=== PATIENT | male | born 1985 | race Hispanic/Latino ===

== ENCOUNTER 2016-06-10 23:06 | Emergency (ER) | payer OTHER ==
[2016-06-10 23:41] LABS: Hemoglobin 15.8 gm/dl (11.8-15.2); Mean Corpuscular HGB Conc 34 % (32-34); Mean Corpuscular Hemoglobin 30 pg (28-32); Mean Corpuscular Volume 88 fl (84-94); Platelet Count 164 K/mm3 (140-440); Red Blood Count 5.21 M/mm3 (3.65-5.03); Red Cell Distribution Width 13.9 % (13.2-15.2); White Blood Count 8.2 K/mm3 (4.5-11.0)
[2016-06-10] MEDS ORDERED: NACL 0.9% 1000 ML 1,000 ML IV ONE (23:47)
[2016-06-10] MEDS ORDERED: VITAMIN B-1 100 MG, FOLVITE 1 MG, INFUVITE 10 ML, MAGNESIUM SULFATE 2 GM in NACL 0.9% 1... IV ONE (23:47)
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
[2016-06-11 00:01] LABS: Anion Gap 23 mmol/L; BUN/Creatinine Ratio 12.72; Blood Urea Nitrogen 14 mg/dL (9-20); Calcium 8.8 mg/dL (8.4-10.2); Carbon Dioxide 21 mmol/L (22-30); Chloride 100.8 mmol/L (98-107); Glucose 125 mg/dL (75-100); Potassium 3.6 mmol/L (3.6-5.0); Sodium 141 mmol/L (137-145)
[2016-06-11 00:16] LABS: Alanine Aminotransferase 42 units/L (7-56); Albumin 4.5 g/dL (3.9-5); Albumin/Globulin Ratio 1.8 %; Alkaline Phosphatase 73 units/L (35-129); Bilirubin,Total 0.2 mg/dL (0.1-1.2)
[2016-06-11 00:25] LABS: Bilirubin,Direct < 0.2 mg/dL (0-0.2)
[2016-06-11] MEDS ORDERED: NACL ONE (04:12)
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
[2016-06-11 05:39] VITALS: BP 128/76
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
== END 2016-06-11 10:05 | disposition home or self-care (01) ==
LOC: ED 23:06
DX: F10.129 Alcohol abuse with intoxication, unspecified (principal); F17.200 Nicotine dependence, unspecified, uncomplicated; Y90.9 Presence of alcohol in blood, level not specified; Z79.899 Other long term (current) drug therapy
CPT/HCPCS: 36415; 70450; 72125; 74177; 80048; 80074; 85027; 96365; 96366; 99284; G0480; J3411; J3475; J7030; Q9967; 80320